=== PATIENT | male | born 1995 | race Two or more races ===

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

== ENCOUNTER 2017-12-18 15:22 | Emergency (ER) | payer OTHER ==
--- NOTE | 2017-12-18 16:30 | EDPHY ---
H & P Stated Complaint: ANAL PAIN Time Seen by Provider: 12/18/17 16:29 HPI/ROS: HPI: This is a 22-year-old male who presents with Chief Complaint: Anal pain Location: Quality: Duration: Signs and Symptoms: no fever, no nausea, no vomiting, no hematemesis, no blood in stool, no abdominal bloating, no diarrhea, no back pain, no urinary symptoms , no testicular/groin pain, no indigestion, no chest pain, no shortness of breath Timing: Severity: Context: Modifying Factors: Comment: ROS: see HPI Constitutional: No fever, no chills, no weight loss Eyes: No blurred vision Respiratory: No shortness of breath, no cough Cardiovascular: No chest pain, no palpitations Gastrointestinal: No nausea, no vomiting, no diarrhea, no hematemesis, no blood in stool Genitourinary: No dysuria, no blood in urine Extremities: No myalgias, no edema Neurologic: No weakness, no numbness Skin: No rashes, no petechiae Hematologic: No bruising, no bleeding MEDICAL/SURGICAL/SOCIAL HISTORY: Medical history: Generally healthy. Does not take any regular medications. Surgical history: Denies Social history: Tobacco user. Family history noncontributory. CONSTITUTIONAL: awake and alert, no obvious distress HEENT: Atraumatic and normocephalic, PERRL, EOMI. Nares patent; no rhinorrhea; no nasal mucosal edema. Tympanic membranes clear. Oropharynx clear, no exudate and moist pink mucosa. Airway patent. No lymphadenopathy. No meningismus. Cardiovascular: Normal S1/S2, regular rate, regular rhythm, without murmur rub or gallop. PULMONARY/CHEST: Symmetrical and nontender. Clear to auscultation bilaterally. Good air movement. No accessory muscle usage. ABDOMEN: Soft, nondistended, nontender, no rebound, no guarding, no peritoneal signs, no masses or organomegaly. No CVAT. EXTREMITIES: 2/2 pulses, strength 5/5, no deformities, no clubbing, no cyanosis or edema. NEUROLOGICAL: no focal neuro deficits. GCS 15. SKIN: Warm and dry, no erythema. no rash. Good capillary refill. Source: Patient Exam Limitations: No limitations - Personal History Current Tetanus/Diphtheria Vaccine: Yes Current Tetanus Diphtheria and Acellular Pertussis (TDAP): Yes - Medical/Surgical History Hx Asthma: No Hx Chronic Respiratory Disease: No Hx Diabetes: No Hx Cardiac Disease: No Hx Renal Disease: No Hx Cirrhosis: No Hx Alcoholism: No Hx HIV/AIDS: No Hx Splenectomy or Spleen Trauma: No Other PMH: DENIES - Social History Smoking Status: Current every day smoker Constitutional: Initial Vital Signs Temperature (C) 36.9 C 12/18/17 15:49 Heart Rate 93 12/18/17 15:49 Respiratory Rate 18 12/18/17 15:49 Blood Pressure 114/71 12/18/17 15:49 O2 Sat (%) 98 12/18/17 15:49 O2 Delivery Mode Room Air Allergies/Adverse Reactions: No Known Allergies Allergy (Unverified 12/24/16 22:42) Home Medications: Medication Instructions Recorded NK [No Known Home Meds] 12/24/16 Departure - Departure Referrals: NONE *PRIMARY CARE P,. [Primary Care Provider] - As per Instructions
--- NOTE | 2017-12-18 17:11 | EDPHY ---
H & P Time Seen by Provider: 12/18/17 16:55 HPI/ROS: CHIEF COMPLAINT: "My anus hurts" HISTORY OF PRESENT ILLNESS: 22-year-old male complaining of 2 days of pain with defecation. No blood or pus in stool. No abdominal pain. No fever no chills. No Rectal foreign body insertion. PHYSICAL EXAM (Prior to examination, patient consented to physical exam, hands were washed and my usual and customary physical exam procedures followed) 1) GENERAL: Well-developed, well-nourished, alert and oriented. Appears to be in no acute distress. 2) HEAD: Normocephalic 3) HEENT: sclera anicteric 4) LUNGS: Breathing comfortably. [5) RECTAL: Single thrombosed hemorrhoid is noted. No evidence of perianal abscess. No evidence of cellulitis. Smoking Status: Current every day smoker Constitutional: Initial Vital Signs Temperature (C) 36.9 C 12/18/17 15:49 Heart Rate 93 12/18/17 15:49 Respiratory Rate 18 12/18/17 15:49 Blood Pressure 114/71 12/18/17 15:49 O2 Sat (%) 98 12/18/17 15:49 O2 Delivery Mode Room Air Allergies/Adverse Reactions: No Known Allergies Allergy (Unverified 12/24/16 22:42) Home Medications: Medication Instructions Recorded Hydrocortisone Acetate [Anucort-Hc] 25 mg RC Q6 #15 supp.rect 12/18/17 MDM/Departure - MDM Procedures: Procedure: Excision of thrombosed hemorrhoid Indication: Thrombosed hemorrhoid Indications, risks, benefits discussed with patient he consents to procedure and medication. There is prepped draped normal sterile fashion, 1% lidocaine with epinephrine instilled into thrombosed area. Elliptoid incision was made in the thrombus was removed. The area is then dressed with sterile dressing. Patient tolerated procedure well. ED Course/Re-evaluation: Patient has a single thrombosed hemorrhoid. This is been excised. No evidence of concurrent infection. Given usual and customary hemorrhoid precautions. Care of patient under supervision of secondary supervising physician Dr Gallegos . - Depart Disposition: Home, Routine, Self-Care Clinical Impression: Thrombosed external hemorrhoid Condition: Good Instructions: Thrombosed Hemorrhoid (ED) Prescriptions: Hydrocortisone Acetate [Anucort-Hc] 25 mg RC Q6 #15 supp.rect Referrals: Kev Cruz MD [Medical Doctor] - 5-7 days, call for appt.
[2017-12-18 17:23] VITALS: BP 118/75
== END 2017-12-18 17:28 | disposition home or self-care (01) ==
PROC: 06BY0ZC Excision of Hemorrhoidal Plexus, Open Approach (ICD-10-PCS; principal; 2017-12-18)
DX: K64.5 Perianal venous thrombosis (principal); F17.200 Nicotine dependence, unspecified, uncomplicated

== ENCOUNTER 2018-05-25 21:09 | Emergency (ER) | payer OTHER ==
[2018-05-25 21:14] VITALS: BP 139/86
[2018-05-25] MEDS ORDERED: ONDANSETRON 4MG PREPACK#2 BTL TAKEHOME ONE (21:28)
--- NOTE | 2018-05-25 21:28 | EDPHY ---
H & P Stated Complaint: N/V Time Seen by Provider: 05/25/18 21:25 HPI/ROS: HPI: This is a 22-year-old male who presents with Chief Complaint: Nausea, vomiting Location: GI Quality: Nausea, vomiting Duration: Since this morning Signs and Symptoms: no fever, + nausea, + vomiting, no hematemesis, no blood in stool, no abdominal bloating, no diarrhea, no back pain, no urinary symptoms, no testicular/groin pain, no indigestion, no chest pain, no shortness of breath Timing: Acute Severity: Mild Context: Patient is a student at [employer], presents with complaints of sudden onset of nausea and vomiting 3-5 times today. He reports that he is drinking Gatorade. Denies any fever, diarrhea, abdominal pain, testicular pain, urinary symptoms, back pain. He believes that he may have food poisoning as he ate at "[employer]ant in [place] yesterday afternoon. " He lives alone. Modifying Factors: Drinking fluids Comment: ROS: A comprehensive 10 system review of systems is otherwise negative aside from elements mentioned in the history of present illness. MEDICAL/SURGICAL/SOCIAL HISTORY: Medical history: Generally healthy. Does not take any regular medications. Surgical history: Denies Social history: Never smoked. Family history noncontributory. CONSTITUTIONAL: Well-appearing young adult male, awake and alert, no obvious distress HEENT: Atraumatic and normocephalic, PERRL, EOMI. Nares patent; no rhinorrhea; no nasal mucosal edema. Tympanic membranes clear. Oropharynx clear, no exudate and moist pink mucosa. Airway patent. No lymphadenopathy. No meningismus. Cardiovascular: Normal S1/S2, mild tachycardia, regular rhythm, without murmur rub or gallop. PULMONARY/CHEST: Symmetrical and nontender. Clear to auscultation bilaterally. Good air movement. No accessory muscle usage. ABDOMEN: Soft, nondistended, nontender, no rebound, no guarding, no peritoneal signs, no masses or organomegaly. No CVAT. EXTREMITIES: 2/2 pulses, strength 5/5, no deformities, no clubbing, no cyanosis or edema. NEUROLOGICAL: no focal neuro deficits. GCS 15. SKIN: Warm and dry, no erythema. no rash. Good capillary refill. Source: Patient Exam Limitations: No limitations - Personal History Current Tetanus/Diphtheria Vaccine: Yes - Medical/Surgical History Hx Asthma: No Hx Chronic Respiratory Disease: No Hx Diabetes: No Hx Cardiac Disease: No Hx Renal Disease: No Hx Cirrhosis: No Hx Alcoholism: No Hx HIV/AIDS: No Hx Splenectomy or Spleen Trauma: No Other PMH: DENIES - Social History Smoking Status: Never smoked Constitutional: Initial Vital Signs Temperature (C) 37.1 C 05/25/18 21:11 Heart Rate 109 H 05/25/18 21:11 Respiratory Rate 18 05/25/18 21:11 Blood Pressure 139/86 H 05/25/18 21:11 O2 Sat (%) 96 05/25/18 21:11 O2 Delivery Mode Room Air Allergies/Adverse Reactions: No Known Allergies Allergy (Unverified 05/25/18 21:14) Home Medications: Medication Instructions Recorded Hydrocortisone Acetate [Anucort-Hc] 25 mg RC Q6 #15 supp.rect 12/18/17 Ondansetron Odt [Zofran Odt 4 mg 4 mg PO Q4 PRN #12 tab 05/25/18 (*)] Medical Decision Making ED Course/Re-evaluation: Vital signs reviewed and show mild tachycardia. Patient drinking fluids without difficulty. Given p.o. Zofran. Monitored for over an hour and passed p.o. Trial. Patient reports that he is feeling better. Abdomen is soft and nontender. Doubt surgical process. Advised supportive care. School note provided per request. This patient was seen under the supervision of my secondary supervising physician. I evaluated care for this patient independently. Discussed this patient with Dr. Powell. Differential Diagnosis: Differential diagnosis includes but is not limited to gastroenteritis, food poisoning. - Data Points Medications Given: Discontinued Medications Acetaminophen (Tylenol) 1,000 mg PO EDNOW ONE Stop: 05/25/18 21:49 Last Admin: 05/25/18 21:50 Dose: 1,000 mg Ondansetron HCl (Zofran Odt 4 Mg Prepack#2) 1 btl TAKEHOME EDNOW ONE Stop: 05/25/18 21:29 Last Admin: 05/25/18 21:48 Dose: 1 btl Departure - Departure Disposition: Home, Routine, Self-Care Clinical Impression: Gastroenteritis Condition: Good Instructions: Ondansetron (By mouth), Gastroenteritis (ED) Additional Instructions: Consume a minimum of 8-10 glasses of water or electrolyte fluid replacement drinks that include Gatorade, Powerade, Pedialyte. Eat a bland diet for the next 48 hours and then slowly advance as tolerated. Take Zofran 1 tab every 4 hours as needed for nausea, vomiting. Return to the Emergency Room if symptoms do not resolve in the next 72 hours, you spike a fever > 102 F, or experience intractable abdominal pain/nausea/ vomiting. Referrals: [facility],. [Clinic] - 3-4 days, if not improved Stand Alone Forms: School Excuse Prescriptions: Ondansetron Odt [Zofran Odt 4 mg (*)] 4 mg PO Q4 PRN #12 tab PRN Reason: Nausea/Vomiting, Use 1st
[2018-05-25] MEDS ORDERED: ACETAMINOPHEN 500 MG TAB PO ONE (21:48)
== END 2018-05-25 21:55 | disposition home or self-care (01) ==
DX: K52.9 Noninfective gastroenteritis and colitis, unspecified (principal)

== ENCOUNTER 2018-09-20 20:53 | Emergency (ER) | payer OTHER ==
--- NOTE | 2018-09-20 21:10 | EDPHY ---
H & P Stated Complaint: nausea, vomiting x 4 days Time Seen by Provider: 09/20/18 21:06 HPI/ROS: CHIEF COMPLAINT: Vomiting HISTORY OF PRESENT ILLNESS: The patient presents the emergency department with a 4 day history of intermittent vomiting. The patient reports mild crampy abdominal pain. He denies any fever, cough or congestion. The patient denies significant past medical history. He did have a history of gastroenteritis approximately 3 years ago prompting a visit to the emergency department. Patient reports he has continued to have some urine output. The patient denies any fever or rash. He denies any recent antibiotic use. REVIEW OF SYSTEMS: A comprehensive 10 point review of systems is otherwise negative aside from elements mentioned in the history of present illness. Source: Patient Exam Limitations: No limitations - Personal History Current Tetanus Diphtheria and Acellular Pertussis (TDAP): Yes - Medical/Surgical History Hx Asthma: No Hx Chronic Respiratory Disease: No Hx Diabetes: No Hx Cardiac Disease: No Hx Renal Disease: No Hx Cirrhosis: No Hx Alcoholism: No Hx HIV/AIDS: No Hx Splenectomy or Spleen Trauma: No Other PMH: DENIES - Social History Smoking Status: Never smoked - Physical Exam Exam: General Appearance: Alert, no distress Eyes: Pupils equal and round no pallor or injection ENT, Mouth: Mucous membranes moist Respiratory: There are no retractions, lungs are clear to auscultation Cardiovascular: Regular rate and rhythm Gastrointestinal: Mild abdominal tenderness, no peritoneal signs, normal bowel sounds Neurological: 5/5 strength noted all 4 extremities Skin: Warm and dry, no rashes Musculoskeletal: Neck is supple nontender Extremities: symmetrical, full range of motion Constitutional: Initial Vital Signs Temperature (C) 36.8 C 09/20/18 20:56 Heart Rate 103 H 09/20/18 20:56 Respiratory Rate 18 09/20/18 20:56 Blood Pressure 120/73 09/20/18 20:56 O2 Sat (%) 96 09/20/18 20:56 O2 Delivery Mode Room Air Allergies/Adverse Reactions: No Known Allergies Allergy (Verified 09/20/18 20:56) Home Medications: Medication Instructions Recorded NK [No Known Home Meds] 09/20/18 Medical Decision Making ED Course/Re-evaluation: The patient presents the emergency department nausea and vomiting for the past several days. Patient has benign abdominal exam. The patient had an IV established. He received 4 mg of IV Zofran. He received a L of normal saline. Patient was re-evaluated at 10:00 p.m.: The patient complains of a mild headache. Toradol 15 mg IV given Metabolic panel within normal limits. Re-evaluated after Toradol: Headache has improved. No meningeal symptoms present. Patient will be discharged home with a prescription for Zofran. He is advised to use ibuprofen as needed for his headache. Differential Diagnosis: Differential diagnosis considered includes gastroenteritis, pancreatitis, metabolic derangement, hepatitis, dehydration - Data Points Laboratory Results: Laboratory Results 09/20/18 21:20 09/20/18 21:20 09/20/18 09/20/18 21:20 21:20 WBC 7.63 10^3/uL 10^3/uL (3.80-9.50) RBC 5.08 10^6/uL 10^6/uL (4.40-6.38) Hgb 15.5 g/dL g/dL (13.7-17.5) Hct 43.1 % % (40.0-51.0) MCV 84.8 fL fL (81.5-99.8) MCH 30.5 pg pg (27.9-34.1) MCHC 36.0 g/dL g/dL (32.4-36.7) RDW 12.5 % % (11.5-15.2) Plt Count 204 10^3/uL 10^3/uL (150-400) MPV 10.6 fL fL (8.7-11.7) Neut % (Auto) 56.5 % % (39.3-74.2) Lymph % (Auto) 32.1 % % (15.0-45.0) [place] % (Auto) 8.4 % % (4.5-13.0) Eos % (Auto) 2.2 % % (0.6-7.6) Baso % (Auto) 0.7 % % (0.3-1.7) Nucleat RBC Rel Count 0.0 % % (0.0-0.2) Absolute Neuts (auto) 4.31 10^3/uL 10^3/uL (1.70-6.50) Absolute Lymphs (auto) 2.45 10^3/uL 10^3/uL (1.00-3.00) Absolute Monos (auto) 0.64 10^3/uL 10^3/uL (0.30-0.80) Absolute Eos (auto) 0.17 10^3/uL 10^3/uL (0.03-0.40) Absolute Basos (auto) 0.05 10^3/uL 10^3/uL (0.02-0.10) Absolute Nucleated RBC 0.00 10^3/uL 10^3/uL (0-0.01) Immature Gran % 0.1 % % (0.0-1.1) Immature Gran # 0.01 10^3/uL 10^3/uL (0.00-0.10) Sodium 136 mEq/L mEq/L (135-145) Potassium 3.5 mEq/L mEq/L (3.5-5.2) Chloride 103 mEq/L mEq/L (97-110) Carbon Dioxide 23 mEq/l mEq/l (22-31) Anion Gap 10 mEq/L mEq/L (6-14) BUN 12 mg/dL mg/dL (7-23) Creatinine 0.7 mg/dL mg/dL (0.7-1.3) Estimated GFR > 60 Glucose 149 mg/dL H mg/dL (70-100) Calcium 9.5 mg/dL mg/dL (8.5-10.4) Total Bilirubin 0.5 mg/dL mg/dL (0.1-1.4) Conjugated Bilirubin 0.3 mg/dL mg/dL (0.0-0.5) Unconjugated Bilirubin 0.2 mg/dL mg/dL (0.0-1.1) AST 22 IU/L IU/L (17-59) ALT 21 IU/L IU/L (21-72) Alkaline Phosphatase 52 IU/L IU/L (38-126) Total Protein 7.5 g/dL g/dL (6.3-8.2) Albumin 4.4 g/dL g/dL (3.5-5.0) Lipase 71 IU/L IU/L (23-300) Medications Given: Discontinued Medications Sodium Chloride (Ns) 1,000 mls @ 0 mls/hr IV EDNOW ONE; Wide Open PRN Reason: Protocol Stop: 09/20/18 21:19 Last Admin: 09/20/18 21:20 Dose: 1,000 mls Ketorolac Tromethamine (Toradol) 15 mg IVP EDNOW ONE Stop: 09/20/18 21:53 Last Admin: 09/20/18 21:57 Dose: 15 mg Ondansetron HCl (Zofran) 4 mg IVP EDNOW ONE Stop: 09/20/18 21:19 Last Admin: 09/20/18 21:26 Dose: 4 mg Departure - Departure Disposition: Home, Routine, Self-Care Clinical Impression: Vomiting Condition: Good Instructions: Acute Nausea and Vomiting (ED) Additional Instructions: 1. Return to the emergency department for any uncontrolled vomiting, worsening abdominal pain or other concerns. 2. Zofran as needed for nausea 3. Take Ibuprofen or Motrin 600 mg by mouth three times a day. Referrals: [facility],. [Clinic] - As per Instructions
[2018-09-20] MEDS ORDERED: ONDANSETRON 4 MG/2 ML VIAL IVP ONE (21:18)
[2018-09-20] MEDS ORDERED: NS 1,000 ML IV ONE (21:18)
[2018-09-20 21:42] LABS: PLATELET COUNT 204 10^3/uL (150-400)
[2018-09-20] MEDS ORDERED: KETOROLAC 15 MG/1 ML SDV IVP ONE (21:52)
[2018-09-20 21:59] VITALS: BP 143/71
[2018-09-20] MEDS ORDERED: ONDANSETRON 4MG PREPACK#2 BTL TAKEHOME ONE (22:04)
== END 2018-09-20 22:43 | disposition home or self-care (01) ==
DX: R11.10 Vomiting, unspecified (principal); E86.9 Volume depletion, unspecified
CPT/HCPCS: 96374; J1885; J2405

== ENCOUNTER 2018-12-02 00:52 | Emergency (ER) | payer OTHER ==
[2018-12-02] MEDS ORDERED: KETOROLAC 15 MG/1 ML SDV IVP ONE (01:20)
[2018-12-02] MEDS ORDERED: NS 1,000 ML IV ONE (01:20)
[2018-12-02] MEDS ORDERED: ONDANSETRON 4 MG/2 ML VIAL IVP ONE (01:20)
--- NOTE | 2018-12-02 01:26 | EDPHY ---
H & P Stated Complaint: ARAGON x3 days, N/V Time Seen by Provider: 12/02/18 01:12 HPI/ROS: HPI The patient presents with headache, nausea, vomiting which have been present for the last 2 days. Symptoms initially started with a headache which is left- sided, occipital, sharp in nature without radiation which began slowly while at rest and has been intermittent. It is moderate in severity and improved with Tylenol. This is been associated with nausea and vomiting, he last vomited earlier today. He is able to take liquids though not any solid food. He also reports sore throat, cough, rhinorrhea over the last several days and does report that a friend is sick with similar symptoms.. REVIEW OF SYSTEMS 10 systems were reviewed and negative with the exception of the elements mentioned in the history of present illness. PMHx: Healthy Soc Hx: College student PHYSICAL General Appearance: Alert, no distress Eyes: Pupils equal and round no pallor or injection ENT, Mouth: Mucous membranes moist Respiratory: There are no retractions, lungs are clear to auscultation Cardiovascular: Regular rate and rhythm Gastrointestinal: Abdomen is soft and non-tender, no masses, bowel sounds normal Neurological: A&O x3, cranial nerves 2-12 intact, 5/5 strength in upper lower extremities which is symmetric Skin: Warm and dry, no rashes Musculoskeletal: Neck is supple non tender, no nuchal rigidity Extremities: symmetrical, full range of motion Psychiatric: Patient is oriented X 3, there is no agitation Source: Patient Exam Limitations: No limitations - Personal History Current Tetanus/Diphtheria Vaccine: Yes - Medical/Surgical History Hx Asthma: No Hx Chronic Respiratory Disease: No Hx Diabetes: No Hx Cardiac Disease: No Hx Renal Disease: No Hx Cirrhosis: No Hx Alcoholism: No Hx HIV/AIDS: No Hx Splenectomy or Spleen Trauma: No Other PMH: DENIES - Social History Smoking Status: Current some day smoker Constitutional: Initial Vital Signs Temperature (C) 36.6 C 12/02/18 00:54 Heart Rate 86 12/02/18 00:54 Respiratory Rate 16 12/02/18 00:54 Blood Pressure 109/69 12/02/18 00:54 O2 Sat (%) 95 12/02/18 00:54 O2 Delivery Mode Room Air Allergies/Adverse Reactions: No Known Allergies Allergy (Verified 12/02/18 00:55) Home Medications: Medication Instructions Recorded NK [No Known Home Meds] 12/02/18 Medical Decision Making Differential Diagnosis: 23-year-old healthy male presents with 2 days of headache, nausea, vomiting in association with URI type symptoms. Here, well-appearing, normal neuro exam, do not suspect subarachnoid hemorrhage or meningitis. Patient could possibly be experiencing a migraine-type headache. I will treat him for this. He refused an IV, thus I will give him medication by mouth and fluids to drink. Patient felt better after oral medication. Flu test was negative. He will be discharged. Differential diagnosis includes URI, migraine-type headache, sinusitis. - Data Points Medications Given: Discontinued Medications Sodium Chloride (Ns) 1,000 mls @ 0 mls/hr IV EDNOW ONE; Wide Open PRN Reason: Protocol Stop: 12/02/18 01:21 Last Admin: 12/02/18 01:33 Dose: Not Given Ibuprofen (Motrin) 600 mg PO EDNOW ONE Stop: 12/02/18 01:30 Last Admin: 12/02/18 01:32 Dose: 600 mg Ketorolac Tromethamine (Toradol) 15 mg IVP EDNOW ONE Stop: 12/02/18 01:21 Last Admin: 12/02/18 01:33 Dose: Not Given Ondansetron HCl (Zofran) 4 mg IVP EDNOW ONE Stop: 12/02/18 01:21 Last Admin: 12/02/18 01:33 Dose: Not Given Ondansetron HCl (Zofran Odt) 4 mg PO EDNOW ONE Stop: 12/02/18 01:30 Last Admin: 12/02/18 01:31 Dose: 4 mg Departure - Departure Disposition: Home, Routine, Self-Care Clinical Impression: Headache Qualifiers: Headache type: unspecified Headache chronicity pattern: acute headache Intractability: not intractable Qualified Code(s): R51 - Headache Nausea & vomiting Qualifiers: Vomiting type: unspecified Vomiting Intractability: non-intractable Qualified Code(s): R11.2 - Nausea with vomiting, unspecified Condition: Good Instructions: Acute Headache (ED), Viral Syndrome (ED) Additional Instructions: I recommend you take ibuprofen 400 mg with acetaminophen 1000 mg every 6 hr as needed for your headache. Your testing for the flu was negative. Follow-up with [facility] if your worse in any way. Referrals: [facility],. [Clinic] - As per Instructions
[2018-12-02] MEDS ORDERED: ONDANSETRON DISINTEGRATING 4 MG TAB PO ONE (01:29)
[2018-12-02] MEDS ORDERED: IBUPROFEN 600 MG TAB PO ONE (01:29)
[2018-12-02 02:37] VITALS: BP 116/70
== END 2018-12-02 02:35 | disposition home or self-care (01) ==
DX: R51 Headache (principal); R11.2 Nausea with vomiting, unspecified; E86.9 Volume depletion, unspecified

== ENCOUNTER 2018-12-21 12:32 | Emergency (ER) | payer OTHER ==
[2018-12-21] MEDS ORDERED: METOCLOPRAMIDE 10 MG/2 ML VIAL IVP ONE (13:30)
[2018-12-21] MEDS ORDERED: NS 1,000 ML IV ONE (13:30)
[2018-12-21] MEDS ORDERED: DEXAMETHASONE 10 MG/ML VIAL IVP ONE (13:30)
[2018-12-21] MEDS ORDERED: KETOROLAC 30 MG/1 ML SDV IVP ONE (13:30)
--- NOTE | 2018-12-21 14:08 | EDPHY ---
General Time Seen by Provider: 12/21/18 13:12 Narrative: CLINICAL IMPRESSION: Tension headache ASSESSMENT/PLAN: 23-year-old male presents to the emergency department with 2 days of gradual onset occipital headache. No meningeal findings. Vital signs stable. No reported fever or chills. Nonfocal neurological exam. NIH score of 0. No ataxia. No description of thunderclap headache or worst headache of his life. Patient has history of headaches and has come to the ED for headaches before. Low clinical suspicion for acute intracranial hemorrhage or need for emergent CT scan. He was given IV analgesics with improvement in his symptoms. He tolerated water without difficulty. Encouraged outpatient primary care and possible neurology consultation if headaches persist. Stress management discussed. Warning signs return to ED sooner discussed discharge. DIFFERENTIAL DX: Differential diagnosis for headache includes but not limited to subarachnoid hemorrhage, migraine headache, migraine varient headache, tension headache and infectious causes such as meningitis, pharyngitis and sinusitis. ED PROCEDURES: See lab and/or imaging results below ED COURSE: 2:00 p.m.: Patient reassessed. States his headache is nearly gone. Remains without focal neurological deficits. Will plan to discharge home. CHIEF COMPLAINT: Intermittent headache times 2 days. HPI: 23-year-old male presents to the emergency department with 2 days of gradual onset left-sided occipital headache. No associated dizziness, vertigo, acute vision changes, acute hearing changes, tinnitus, hearing loss. No fevers or chills, recent illness, rash. He reviewed reports mild photosensitivity, no phono sensitivity. He reports he has had headaches in the past but Tylenol did not help his headache today. He has had to come to the emergency department for headaches. He denies a sensation of the worse headache of his life for a thunderclap sensation. No heavy lifting or straining recently. He does endorse a lot more stress with studying for finals recently. PAST MEDICAL HISTORY: None reported See nurse/triage notes for additional history if applicable Pertinent Past Surgical History: None reported Family History: Father with migraines Social History: Student at [employer] REVIEW OF SYSTEMS: All other systems negative Constitutional: No fever, no chills, appetite change. Eyes: No discharge, vision change ENT: No sore throat, congestion, ear pain. Cardiovascular: No chest pain, no palpitations. Respiratory: No cough, no shortness of breath. Gastrointestinal: No abdominal pain, no vomiting, diarrhea. Skin: No rashes, color change. Neurological: Positive for headache, dizziness, weakness. PHYSICAL EXAM: General Appearance: Alert, oriented, appropriate, cooperative, NAD, well hydrated, non-toxic appearing, VSS, no hypoxia. HEENT: TMs are clear bilaterally no perforation or FB, no injection, no evidence of serous or mucopurulent otitis. Oropharynx clear is no erythema or exudates, no tonsillar hypertrophy or asymmetry. Dentition without abnormality. Eyes: PERRLA, no acute vision change, nystagmus, swelling, discharge, pain or photosensitivity. Conjunctiva pink, no pallor or injection Neck: Supple, nontender, no lymphadenopathy, no midline pain, FROM, no meningismus. Respiratory: There are no retractions, lungs are clear to auscultation. Cardiac: Regular rate and rhythm, no murmurs or gallops. Neurological: Alert and oriented x 3, CN 2-12 grossly intact, normal gait no ataxia, DTR's intact, normal sensation and strength Skin: Warm, dry, no rashes, no nodules on palpation. MEDICAL DECISION MAKING: Patient was seen independently. Secondary supervising physician at time of evaluation was Dr Duron . Diagnosis: Tension headache . New, requires workup Summary: See Assessment and Plan for summary of ED visit Patient Progress: Improved, stable for discharge. - History Smoking Status: Current some day smoker - Objective Vital Signs: Initial Vital Signs Temperature (C) 36.7 C 12/21/18 12:45 Heart Rate 84 12/21/18 12:45 Respiratory Rate 16 12/21/18 12:45 Blood Pressure 105/65 12/21/18 12:45 O2 Sat (%) 97 12/21/18 12:45 O2 Delivery Mode Room Air Allergies/Adverse Reactions: No Known Allergies Allergy (Verified 12/21/18 12:48) Home Medications: Medication Instructions Recorded NK [No Known Home Meds] 12/02/18 Medications Given: Discontinued Medications Dexamethasone (Decadron Injection) 10 mg IVP EDNOW ONE Stop: 12/21/18 13:31 Last Admin: 12/21/18 13:49 Dose: 10 mg Diphenhydramine HCl (Benadryl Injection) 25 mg IVP EDNOW ONE Stop: 12/21/18 13:31 Last Admin: 12/21/18 13:45 Dose: 25 mg Sodium Chloride (Ns) 1,000 mls @ 0 mls/hr IV ONCE ONE; Wide Open PRN Reason: Protocol Stop: 12/21/18 13:31 Last Admin: 12/21/18 13:44 Dose: 1,000 mls Ketorolac Tromethamine (Toradol) 15 mg IVP EDNOW ONE Stop: 12/21/18 13:31 Last Admin: 12/21/18 13:47 Dose: 15 mg Metoclopramide HCl (Reglan Injection) 10 mg IVP EDNOW ONE Stop: 12/21/18 13:31 Last Admin: 12/21/18 13:45 Dose: 10 mg Departure - Departure Disposition: Home, Routine, Self-Care Clinical Impression: Tension headache Condition: Good Instructions: Tension Headache (ED) Additional Instructions: DISCHARGE INSTRUCTIONS FROM YOUR DOCTOR Thank you for visiting our emergency department today. You were treated by a physician ice cream freezer assistant today and your case was reviewed with our ED Attending physician. Please keep in mind that discharge from the emergency department does not mean that there is nothing wrong - it simply means that we have not identified an emergency condition that requires further evaluation or treatment in the hospital. You should always plan to follow up with primary care for re- evaluation of your condition in the next 2-3 days. If you have been referred to a specialist, please call as soon as possible (today or tomorrow) to schedule your follow up appointment at the appropriate time. PLEASE FOLLOW-UP WITH A PRIMARY CARE DOCTOR OR [facility] IN 2-3 DAYS TO RECHECK. STAY WELL-HYDRATED, AVOID DRINKING EXCESSIVE AMOUNTS OF CAFFEINE, GET PLENTY OF REST, EAT REGULAR MEALS. RETURN TO THE EMERGENCY DEPARTMENT IMMEDIATELY FOR SEVERE OR WORSENING HEADACHE, SUDDEN ONSET WORST HEADACHE OF YOUR ENTIRE LIFE, THUNDERCLAP HEADACHE, HIGH FEVERS, STIFF NECK, DIZZINESS OR VERTIGO, OR ANY OTHER CONCERNS. People present with illnesses and injuries in different ways, and it is always possible that we have missed something. You may always return for re-evaluation if symptoms worsen or if they are not improving or if you develop new/different symptoms. Again, thank you for choosing our emergency department. We hope that you feel better. Referrals: NONE *PRIMARY CARE P,. [Primary Care Provider] - As per Instructions [facility],. [Clinic] - 2-3 days, call for appt.
[2018-12-21 14:34] VITALS: BP 109/62
== END 2018-12-21 14:32 | disposition home or self-care (01) ==
DX: G44.209 Tension-type headache, unspecified, not intractable (principal); E86.9 Volume depletion, unspecified
CPT/HCPCS: 96374; J1100; J1200; J1885; J2765

== ENCOUNTER 2019-01-06 19:06 | Emergency (ER) | payer OTHER ==
--- NOTE | 2019-01-06 19:14 | EDPHY ---
H & P Stated Complaint: Pt reports for vomiting, cough, fever like symptoms Time Seen by Provider: 01/06/19 19:07 - Personal History Current Tetanus/Diphtheria Vaccine: Yes Current Tetanus Diphtheria and Acellular Pertussis (TDAP): Yes - Medical/Surgical History Hx Asthma: No Hx Chronic Respiratory Disease: No Hx Diabetes: No Hx Cardiac Disease: No Hx Renal Disease: No Hx Cirrhosis: No Hx Alcoholism: No Hx HIV/AIDS: No Hx Splenectomy or Spleen Trauma: No Other PMH: DENIES - Social History Smoking Status: Current some day smoker Constitutional: Initial Vital Signs Temperature (C) 36.9 C 01/06/19 19:08 Heart Rate 113 H 01/06/19 19:08 Respiratory Rate 20 01/06/19 19:08 Blood Pressure 130/78 H 01/06/19 19:08 O2 Sat (%) 97 01/06/19 19:08 O2 Delivery Mode Room Air Allergies/Adverse Reactions: No Known Allergies Allergy (Verified 01/06/19 19:07) Home Medications: Medication Instructions Recorded NK [No Known Home Meds] 12/02/18 Medical Decision Making ED Course/Re-evaluation: CHIEF COMPLAINT: Vomiting HISTORY OF PRESENT ILLNESS: The patient is a 23 y/o male complaining of vomiting since yesterday. As he has been unable to keep any foods or fluids down he decided to present to the emergency department. No fever, headache, body aches, lightheadedness, chest pain, heart palpitations, shortness of breath, cough, abdominal pain, urinary or bowel complaints, numbness, paresthesias. REVIEW OF SYSTEMS: A comprehensive 10 system review of systems is otherwise negative aside from elements mentioned in the history of present illness and medical decision making. PHYSICAL EXAM: HR, BP, O2 Sat, RR. Temp noted General Appearance: Alert, well hydrated, appropriate, and non-toxic appearing. Head: Atraumatic without scalp tenderness or obvious injury Eyes: Pupils equal, round, reactive to light and accommodation, EOMI, no trauma , no injection. Ears: Clear bilaterally, no perforation, normal landmarks Nose: Atraumatic, no rhinorrhea, clear. Throat: There is no erythema or exudates, no lesions, normal tonsils, mucus membranes moist. Neck: Supple, 2+ carotid upstroke, nontender, no lymphadenopathy. Respiratory: No retractions, no distress, no wheezes, and no accessory muscle use. Lungs are clear to auscultation bilaterally. Cardiovascular: Regular rate and rhythm, no murmurs, rubs, or gallops. Bilateral carotid, radial, dorsalis pedis, and posterior tibial pulses intact. Good capillary refill all extremities. Gastrointestinal: Abdomen is soft, nontender, non-distended, no masses, no rebound, no guarding, no peritoneal signs. Musculoskeletal: Normal active ROM of all extremities, atraumatic. Neurological: Alert, appropriate, and interactive. The patient has normal DTRs and non-focal cranial nerves, motor, sensory, and cerebellar exam. Skin: No rashes, good turgor, no nodules on palpation. Past medical history: Denies Past surgical history: Denies Family history: Denies Social history: Lives in [place], originally from [facility], student at DIAGNOSTICS/PROCEDURES/CRITICAL CARE TIME: Not indicated. DIFFERENTIAL DIAGNOSIS: The differential diagnosis for the patient's nausea and vomiting included but was not limited to gastroenteritis, gastritis, appendicitis, and medication side effect. MEDICAL DECISION MAKING: The patient is a 23 y/o male complaining of vomiting since yesterday. He has a normal physical exam and is not actively vomiting. Labs ordered; 2L IV NS, 30mg IV Toradol and 12.5mg IV Phenergan administered. 2044: Reassessed patient, he is feeling better after medication and has passed his PO trial. I have prescribed him Zofran. Return precautions provided; patient is comfortable with this plan. - Data Points Laboratory Results: Laboratory Results 01/06/19 19:30 01/06/19 19:30 01/06/19 01/06/19 19:30 19:30 WBC 7.18 10^3/uL 10^3/uL (3.80-9.50) RBC 5.22 10^6/uL 10^6/uL (4.40-6.38) Hgb 15.9 g/dL g/dL (13.7-17.5) Hct 45.4 % % (40.0-51.0) MCV 87.0 fL fL (81.5-99.8) MCH 30.5 pg pg (27.9-34.1) MCHC 35.0 g/dL g/dL (32.4-36.7) RDW 12.4 % % (11.5-15.2) Plt Count 206 10^3/uL 10^3/uL (150-400) MPV 10.5 fL fL (8.7-11.7) Neut % (Auto) 52.5 % % (39.3-74.2) Lymph % (Auto) 34.7 % % (15.0-45.0) [place] % (Auto) 10.2 % % (4.5-13.0) Eos % (Auto) 1.9 % % (0.6-7.6) Baso % (Auto) 0.6 % % (0.3-1.7) Nucleat RBC Rel Count 0.0 % % (0.0-0.2) Absolute Neuts (auto) 3.77 10^3/uL 10^3/uL (1.70-6.50) Absolute Lymphs (auto) 2.49 10^3/uL 10^3/uL (1.00-3.00) Absolute Monos (auto) 0.73 10^3/uL 10^3/uL (0.30-0.80) Absolute Eos (auto) 0.14 10^3/uL 10^3/uL (0.03-0.40) Absolute Basos (auto) 0.04 10^3/uL 10^3/uL (0.02-0.10) Absolute Nucleated RBC 0.00 10^3/uL 10^3/uL (0-0.01) Immature Gran % 0.1 % % (0.0-1.1) Immature Gran # 0.01 10^3/uL 10^3/uL (0.00-0.10) Sodium 136 mEq/L mEq/L (135-145) Potassium 4.1 mEq/L mEq/L (3.5-5.2) Chloride 103 mEq/L mEq/L (97-110) Carbon Dioxide 24 mEq/l mEq/l (22-31) Anion Gap 9 mEq/L mEq/L (6-14) BUN 14 mg/dL mg/dL (7-23) Creatinine 1.0 mg/dL mg/dL (0.7-1.3) Estimated GFR > 60 Glucose 97 mg/dL mg/dL (70-100) Calcium 9.5 mg/dL mg/dL (8.5-10.4) Total Bilirubin 0.3 mg/dL mg/dL (0.1-1.4) Conjugated Bilirubin 0.3 mg/dL mg/dL (0.0-0.5) Unconjugated Bilirubin 0.0 mg/dL mg/dL (0.0-1.1) AST 21 IU/L IU/L (17-59) ALT 33 IU/L IU/L (21-72) Alkaline Phosphatase 51 IU/L IU/L (38-126) Total Protein 7.0 g/dL g/dL (6.3-8.2) Albumin 4.2 g/dL g/dL (3.5-5.0) Lipase 74 IU/L IU/L (23-300) Medications Given: Discontinued Medications Sodium Chloride (Ns) 1,000 mls @ 0 mls/hr IV EDNOW ONE; Wide Open PRN Reason: Protocol Stop: 01/06/19 19:18 Last Admin: 01/06/19 19:27 Dose: 1,000 mls Sodium Chloride (Ns) 1,000 mls @ 0 mls/hr IV EDNOW ONE; Wide Open PRN Reason: Protocol Stop: 01/06/19 19:18 Last Admin: 01/06/19 19:27 Dose: 1,000 mls Ketorolac Tromethamine (Toradol) 30 mg IVP EDNOW ONE Stop: 01/06/19 19:18 Last Admin: 01/06/19 19:28 Dose: 30 mg Promethazine HCl (Phenergan) 12.5 mg IVP EDNOW ONE Stop: 01/06/19 19:18 Last Admin: 01/06/19 19:28 Dose: 12.5 mg Departure - Departure Disposition: Home, Routine, Self-Care Clinical Impression: Gastritis Qualifiers: Gastritis type: unspecified gastritis Chronicity: acute Gastritis bleeding: without bleeding Qualified Code(s): K29.00 - Acute gastritis without bleeding Nausea and vomiting Qualifiers: Vomiting type: unspecified Vomiting Intractability: non-intractable Qualified Code(s): R11.2 - Nausea with vomiting, unspecified Condition: Good Instructions: Gastritis (ED), Acute Nausea and Vomiting (ED) Additional Instructions: 1. Take Zofran as prescribed. 2. Drink plenty of fluids. 3. Follow-up with your primary doctor within 72 hours. 4. Return to the Emergency Department for fever, chest pain, shortness of breath , increasing pain or other worsening of condition. Referrals: [facility],. [Clinic] - As per Instructions Report Scribed for: Saji Holder Report Scribed by: Ciara Rodriguez Date of Report: 01/06/19 Time of Report: 19:15
[2019-01-06] MEDS ORDERED: NS 1,000 ML IV ONE ×2 (19:17)
[2019-01-06] MEDS ORDERED: PROMETHAZINE HCL 25 MG/ML INJ IVP ONE (19:17)
[2019-01-06] MEDS ORDERED: KETOROLAC 30 MG/1 ML SDV IVP ONE (19:17)
[2019-01-06 19:40] LABS: PLATELET COUNT 206 10^3/uL (150-400)
[2019-01-06] MEDS ORDERED: ONDANSETRON 4MG PREPACK#2 BTL TAKEHOME ONE (20:45)
[2019-01-06 20:46] VITALS: BP 118/75
== END 2019-01-06 20:54 | disposition home or self-care (01) ==
DX: K29.00 Acute gastritis without bleeding (principal); R11.2 Nausea with vomiting, unspecified; E86.9 Volume depletion, unspecified
CPT/HCPCS: 96374; J1885; J2550